=== PATIENT | female | born 1995 | race Caucasian/White ===

== ENCOUNTER 2024-06-06 15:07 | Outpatient (AMB) | payer BC, SELFPAY ==
[2024-06-06 15:18] VITALS: BP 112/71; PULSE 84; RESP 16; TEMP 36.7; O2SAT 98; BMI 31.0
--- NOTE | 2024-06-06 15:18 | OBCLNT_ITS ---
Vital Signs 06/06/24 15:18 Height 1.68 m Height Method Stated Weight 87.317 kg Weight Measurement Method Standing Scale BMI 31.0 BP 112/71 Blood Pressure Source Automatic Cuff Blood Pressure Location Left Upper Arm Position Sitting Respiration 16 Pulse 84 Pulse Source Monitor Temp 98.1 F Temp Source Oral Pulse Oximetry (%) 98 Oxygen Delivery Method Room Air Allergies/Home Meds Allergies & Medications Allergies amoxicillin Allergy (Severe, Verified 06/06/24 15:20) Hives Medication Reconciliation vitamins no.121-iron 28 mg-folic acid 800 mcg tablet tab PO 06/06/24 [History Confirmed 06/06/24] Intake Visit Data Collection New Patient or Established: New Patient (never been to [facility]) Reason for Visit:: CARE TRANSFER Seen by Clinical Staff ONLY (RN/MA): No Entry Driver Operator Required: No Do You Feel Safe at Home: Yes Authorities Contacted: N/A PCP or OBGYN visit in last 3 months: Yes Hx Now: Yes Are you currently on any form of Control: No Last menstrual period: 12/13/23 Pain Present Currently: No Pain Scale Used: Angelo-Taylor/Numerical Pain scale:: 0 Smoking Status Smoking Status: Never smoker Questionnaires Covid-19 Vaccine Questionnaire Has patient been vacinated for Covid-19 Have you been vacinated for Covid-19: Yes PHQ-9 PHQ-2 Over the last 2 weeks, how often have you been bothered by any of the following problems? 1. Little interest or pleasure in doing things: not at all 2. Feeling down, depressed, or hopeless: not at all Total score: 0 PHQ-9 3. Trouble falling or staying asleep, or sleeping too much: Not at all 4. Feeling tired or having little energy: Not at all 5. Poor appetite or overeating: Not at all 6. Feeling bad about yourself - or that you are a failure or have let yourself or your family down: Not at all 7. Trouble concentrating on things, such as reading the newspaper or watching television: Not at all 8. Moving or speaking so slowly that other people could have noticed? - Or the opposite - being so fidgety or restless that you have been moving around a lot more than usual: not at all 9. Thoughts that you would be better off or of hurting yourself in some way: Not at all Total score: 0 Source: Developed by Drs. Yovany Ruiz, Jenna Campbell, Andrea Galeas and colleagues, with an educational evelin from [employer]. Depression screen completed yes Social History Living Situation History Marital Status: Lives With: Spouse Housing: House Housing Other:: [place] [facility] [place], works in [employer] sales. Spouse is a yo Tobacco History Smoking Status: Never smoker Second Hand Smoke Exposure: No Alcohol History Alcohol Intake: Never Substance Use History Substance Use: NONE Domestic Abuse History Do You Feel Safe at Home: Yes Past Medical History Past Medical History Have you ever been diagnosed with any of the following: Neurological Problems Seizures: No Migraine: No Cardiology Problems Cardiac Arrhythmia: No Heart Murmur: No Hypercholesterolemia: No Deep Vein Thrombosis: No Hypertension: No Respiratory Problems Asthma: No Pulmonary Embolism: No Sleep Apnea: No Stomache/Intestinal Problems Celiac Disease: No Gall Bladder Disease: Yes (Pain around GB, no gallstones dx yet) Irritable Bowel: Yes (No meds, managed by diet) Genital/Urinary Problems Renal Disease: No Kidney Stones: No Reproductive Problems Breast Cancer: No Endometriosis: No Fibroids: No Genital Herpes: No Gonorrhea: No Pelvic Inflammatory Disease: No Polycystic Ovarian Syndrome: No Previous Pregnancies: No Syphilis: No Musculoskeletal Problems Arthritis: No Rheumatoid Arthritis: No Fibromyalgia: No Head,Eye,Nose,Throat Problems Glaucoma: No Endocrine Problems Diabetes Mellitus Type 2: No Hyperthyroidism: No Hypothyroidism: No Pituitary Disease: No Systemic Lupus Erythematosus: No Blood Problems Anemia: No Psychologic Problems Depression: No Anxiety: No Other Problems Hospitalization: No Autoimmune Disease: No Cosmetic Surgery: No Surgical History Appendectomy: No Bariatric Surgery: No Breast Surgery: No Cholecystectomy: No History of Present Illness HPI Narrative Pt is a 28 y/o transferring care from [facility] [place]. Moving here due to 's job. 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 Besides irritable bowel, severe NV in the first 13 weeks, some lumps in both axillary regions and occasional RUQ pain, pt has had an uncomplicated . OB Initial Visit Menstrual History Menstrual reliability: definite Flow: normal Menstrual regularity: regular Monthly: Yes Age at menarche: 13 On control pills at conception: No Date of positive home test: 12/31/23 Associated symptoms (LMP): Reports fatigue OB History : 1 Para: 0 Hx # Pregnancies: 0 Hx Total # of Abortions (Spontaneous & Elective): 0 # of Living Children: 0 Infection History & Risk Evaluation History of STDs: chlamydia Varicella/chicken pox status: immunized Genetic Screening & History Genetic Screening/Teratology Counseling - Includes patient, baby's father, or anyone in either family with: 1. Patient's age 35 years or older as of estimated date of delivery: No 2. Thalassemia (Paraguayan, Sao Tomean, Mediterranean, or Background); MCV less than 80: No 3. Neural Tube Defect (Meningomyelocele, Spina Bifida, or Anencephaly): No 4. Congenital Heart Defect: No 5. Down Syndrome: No 6. Patrice-Sachs (Ashkenazi Tenriism, Cajun, Micronesian Bahraini): No 7. Jeana Disease (Ashkenazi Tenriism): No 8. Familial Dysautonomia (Ashkenazi Tenriism): No 9. Sickle Cell Disease or Trait (): No 10. Hemophilia or other blood disorders: No 11. Muscular Dystrophy: No 12. Cystic Fibrosis: No 13. Janie's Chorea: No 14. Mental Retardation/Autism: No 15. Other inherited genetic or chromosomal disorder: No 16. Maternal Metabolic Disorder (EG,TYPE 1 Diabetes, PKU): No 17. Patient or baby's father had a child with defects not listed above: No 18. Recurrent loss or a stillbirth: No 19. Medications (including supplements, vitamins, herbs or otc pradeep gs)/illicit/recreational drugs/alcohol since last menstrual period: No 20. Any other: No Infection History 1. Live with someone with TB or exposed to TB: No 2. Rash or viral illness since last menstrual period: No 3. Hepatitis B,C: No Other (see comments) Source: [employer] OB Flowsheet OB Flowsheet Initial Weight: Not Recorded Date -?-?-?-?-?-?-?-?-?-?-?-?- EGA Weight Edema CTX Effacement BP Fundal ht Pres Dilation Effacement Station Visit Note Alb Glu FHR Mov 06/06/24 -?-?-?-?-?-?-?-?-?-?-?-?- 25w 1d 87.317 kg 112/71 24 140 active Review of Systems Review of Systems Narrative Review of Systems: Some occasional RUQ pain, has not had GB US yet, no N/v, resolved at 13 weeks. Good FM, no VB or LOF Constitutional Constitutional: Reports fatigue Endocrine Endocrine: Reports fatigue Exam General Limitations: no limitations General Appearance: alert, in no apparent distress, comfortable and cooperative Assessment & Plan Diagnosis / Problem List (1) : Status: Acute Qualifiers: Weeks of gestation: 25 weeks Qualified Code(s): Z3A.25 - 25 weeks gestation of Plan: Order GB us and axillary US. Pt will have GCT. F/u in 4 weeks Office Procedures OB Clinic LOC & Office Proc's Nursing/Assessment Patient Status: Initial/New Patient OB Clinic Nursing Assessment: Medication Reconciliation, Update PMH in EMR and Vital Signs OB Clinic Coordination of Care: Complex Care and Chronic Disease 1-5, Consent,records obtained, informed consent, Education Simp Pt/Fam, Lab and Imaging orders, Results/Orders obtained and Staff clarify orders Special Needs: Heart tones New Patient Charge New Patient Point Assignment: [id number] New Patient Point Charge: TOOL AND DIE MAKER LEVEL FIVE Level 4 ([id number])
== END 2024-06-06 16:17 | disposition home or self-care (01) ==
PROVIDERS: Supervising Provider Obstetrics & Gynecology; Visit Provider Obstetrics & Gynecology
DX: Z34.02 Encounter for supervision of normal first pregnancy, second trimester (principal); Z3A.25 25 weeks gestation of pregnancy
CPT/HCPCS: 99204; G0463

== ENCOUNTER → 2024-06-20 | Outpatient (CLI) | payer BC, SELFPAY ==
[2024-06-20 17:56] LABS: Glucose,1 Hour PP 50gm Dose 116 mg/dL (80-140)
== END | disposition home or self-care (01) ==
PROVIDERS: Referring Provider Obstetrics & Gynecology; Visit Provider Obstetrics & Gynecology
DX: Z34.90 Encounter for supervision of normal pregnancy, unspecified, unspecified trimester (principal)
CPT/HCPCS: 36415; 82950

== ENCOUNTER → 2024-06-30 | Outpatient (CLI) | payer BC, SELFPAY ==
[2024-06-30 13:30] LABS: Basophils % (Auto) 0 % (0-2.5); Eosinophils % (Auto) 0 % (0-10); Hematocrit 36.3 % (36.0-46.0); Hemoglobin 12.4 g/dL (12.0-16.0); Immature Granulocytes % (Auto) 2 % (0-0); Immature Granulocytes Auto 0.24 Thou/mm3 (0.00-0.00); Lymphocytes # (Auto) 2.7 Thou/mm3 (1.0-4.8); Lymphocytes % (Auto) 19 % (10-50); Mean Corpuscular HGB Conc 34.2 g/dl (31.0-37.0); Mean Corpuscular Hemoglobin 34.3 pg (25.0-35.0); Mean Corpuscular Volume 100 fL (80-100); Monocytes % (Auto) 7 % (0-12); Neutrophils # (Auto) 10.3 Thou/mm3 (1.8-7.7); Neutrophils % (Auto) 72 % (37-80); Nucleated Red Blood Cell % 0 /100 WBC (0); Platelet Count 295 Thou/mm3 (140-440); RDW Standard Deviation 46.4 fL (36.4-46.3); Red Blood Count 3.62 Miln/mm3 (4.00-5.20); White Blood Count 14.2 Thou/mm3 (3.6-11.0)
== END | disposition home or self-care (01) ==
PROVIDERS: PCP Obstetrics & Gynecology; Referring Provider Obstetrics & Gynecology; Visit Provider Obstetrics & Gynecology
DX: R04.0 Epistaxis (principal)
CPT/HCPCS: 36415; 85025

== ENCOUNTER 2024-07-18 14:00 | Outpatient (AMB) | payer BC, SELFPAY ==
[2024-07-18 14:10] VITALS: BP 114/75; PULSE 77; RESP 14; TEMP 36.3; O2SAT 98; BMI 32.5
--- NOTE | 2024-07-18 14:10 | OBCLNT_ITS ---
Vital Signs 07/18/24 14:10 Height 1.68 m Height Method Stated Weight 91.852 kg Weight Measurement Method Standing Scale BMI 32.5 BP 114/75 Blood Pressure Source Automatic Cuff Blood Pressure Location Left Upper Arm Position Sitting Respiration 14 Pulse 77 Pulse Source Monitor Temp 97.4 F Temp Source Oral Pulse Oximetry (%) 98 Oxygen Delivery Method Room Air Allergies/Home Meds Allergies & Medications Allergies amoxicillin Allergy (Severe, Verified 07/18/24 14:13) Hives Medication Reconciliation vitamins no.121-iron 28 mg-folic acid 800 mcg tablet tab PO 06/06/24 [History Confirmed 07/18/24] Intake Visit Data Collection New Patient or Established: Established Patient (seen at [facility] within 3 years) Reason for Visit:: CARE Seen by Clinical Staff ONLY (RN/MA): No Rvda Master Certified Rv Technician Required: No Do You Feel Safe at Home: Yes Authorities Contacted: N/A PCP or OBGYN visit in last 3 months: Yes Hx Now: Yes Are you currently on any form of Control: No Pain Present Currently: No Pain Scale Used: Angelo-Taylor/Numerical Pain scale:: 0 Smoking Status Smoking Status: Never smoker Questionnaires Covid-19 Vaccine Questionnaire Has patient been vacinated for Covid-19 Have you been vacinated for Covid-19: No PHQ-9 PHQ-2 Over the last 2 weeks, how often have you been bothered by any of the following problems? 1. Little interest or pleasure in doing things: not at all 2. Feeling down, depressed, or hopeless: not at all Total score: 0 PHQ-9 3. Trouble falling or staying asleep, or sleeping too much: Not at all 4. Feeling tired or having little energy: Not at all 5. Poor appetite or overeating: Not at all 6. Feeling bad about yourself - or that you are a failure or have let yourself or your family down: Not at all 7. Trouble concentrating on things, such as reading the newspaper or watching television: Not at all 8. Moving or speaking so slowly that other people could have noticed? - Or the opposite - being so fidgety or restless that you have been moving around a lot more than usual: not at all 9. Thoughts that you would be better off or of hurting yourself in some way: Not at all Total score: 0 Source: Developed by Drs. Yovany Ruiz, Jenna Campbell, Andrea Galeas and colleagues, with an educational evelin from [employer]. Depression screen completed yes Social History Living Situation History Lives With: Spouse Housing: House Housing Other:: Moved from [facility] [place], works in [employer]. Spouse is a yo Tobacco History Smoking Status: Never smoker Second Hand Smoke Exposure: No Alcohol History Alcohol Intake: Never Substance Use History Substance Use: NONE Domestic Abuse History Do You Feel Safe at Home: Yes Past Medical History Past Medical History Have you ever been diagnosed with any of the following: Neurological Problems Cerebrovascular Accident (CVA): No Transient Ischemic Attacks (TIA): No Dementia: No Alzheimer's Disease: No Parkinson's Disease: No Seizures: No Migraine: No Head Trauma: No Spinal Cord Injury: No Traumatic Brain Injury: No Cardiology Problems Myocardial Infarction: No Cardiac Arrhythmia: No Atrial Fibrillation: No Angina: No Heart Murmur: No Hypercholesterolemia: No Deep Vein Thrombosis: No Hypertension: No Respiratory Problems Chronic Obstructive Pulmonary Disease (COPD): No Asthma: No Bronchitis: No Pulmonary Embolism: No Sleep Apnea: No Wheezing: No Chest Deformities: No Smoking: No Smoking Cessation Counseling: No Smoking Exposure: No Tobacco Use: No Clubbing: No Exposure to Respiratory Irritants: No Intubation: No Stomache/Intestinal Problems Liver Cancer: No Hepatitis: No Cirrhosis: No Pancreatic Cancer: No Pancreatitis: No Celiac Disease: No Gall Bladder Disease: Yes (Pain around GB, no gallstones dx yet) Irritable Bowel: Yes (No meds, managed by diet) Genital/Urinary Problems Renal Disease: No Kidney Stones: No Polycystic Kidney Disease: No Neurogenic Bladder: No Inguinal Hernia: No Dialysis: No Reproductive Problems Breast Cancer: No Endometriosis: No Fibroids: No Genital Herpes: No Gonorrhea: No Pelvic Inflammatory Disease: No Polycystic Ovarian Syndrome: No Previous Pregnancies: No Syphilis: No Musculoskeletal Problems Muscular Dystrophy: No Myasthenia Gravis: No Marfan's Syndrome: No Arthritis: No Rheumatoid Arthritis: No Fibromyalgia: No Head,Eye,Nose,Throat Problems Cataracts: No Glaucoma: No Blind: No Retinal Detachment: No Macular Degeneration: No Chronic Ear Infections: No Deafness: No Eye Prosthesis: No Endocrine Problems Diabetes Mellitus Type 1: No Diabetes Mellitus Type 2: No Hypoglycemia: No Clarkia's Syndrome: No [place]'s Disease: No Hyperthyroidism: No Hypothyroidism: No Thyroid Cancer: No Parathyroid Disease: No Pituitary Disease: No Systemic Lupus Erythematosus: No Syndrome of Inappropriate Antidiuretic Hormone: No Adrenal Disease: No Graves' Disease: No Blood Problems Anemia: No Leukemia: No Hemophilia: No Thalassemia: No Sickle Cell Disease: No Clotting Problems: No Psychologic Problems Schizophrenia: No Recreational Drug Use: No Bipolar Disorder: No Depression: No Anxiety: No Behavior Problems: No Self-Mutilation: No Other Problems Hospitalization: No Down Syndrome: No Autism: No Developmental Delay: No Cosmetic Surgery: No Hepatitis A: No Hepatitis B: No Hepatitis C: No Communicable Disease: No Cancer: No Cervical Cancer: No Lung Cancer: No Ovarian Cancer: No Surgical History Angioplasty: No Appendectomy: No Bariatric Surgery: No Breast Surgery: No Cholecystectomy: No Visit OB Visit Log OB Flowsheet Initial Weight: Not Recorded Date -?-?-?-?-?-?-?-?-?-?-?-?- EGA Weight Edema CTX Effacement BP Fundal ht Pres Dilation Effacement Station Visit Note Alb Glu FHR Mov 06/06/24 -?-?-?-?-?-?-?-?-?-?-?-?- 25w 1d 87.317 kg 112/71 24 140 active 07/18/24 -?-?-?-?-?-?-?-?-?-?-?-?- 31w 1d 91.852 kg 114/[address] 116. Hgb 12. Constipated and Bright red blood from rectum. Hx hemerrhoids, Stool softeners. Had EGD/Colon screen in past for IBS. 140 active BOBBY Calculator Estimated Delivery Date Method Current WG Current Estimate 09/18/24 Ultrasound #1 31w 1d Other Estimates 09/18/24 LMP (Certain) 31w 1d Expected Delivery Route/Plan Anticipate . Pt mother had a CS Specific Issue/Plans Transfer of care from [facility] Notes Visit Date: 06/06/24 Last Updated by: Alesia Nathan (OB Clinic)MD Pt transferred care from [facility]. All PNC reviewed. Normal labs and second trimester US reviewed. NIPT tests reported by pt as WNL but no report seen. Knows it is a boy. Has GCT scheduled and will schedule a GB US for RUQ pain and an axillary US for lumps. Reassured pt and spouse this is likely just redundant breast tissue in axillary tail but since other MD was concerned, will order US. Office Procedures OB Clinic LOC & Office Proc's Nursing/Assessment Patient Status: Established Patient OB Clinic Nursing Assessment: Medication Reconciliation, Update PMH in EMR and Vital Signs OB Clinic Coordination of Care: Complex Care and Chronic Disease 1-5, Consent,records obtained, informed consent, Education Simp Pt/Fam and Staff clarify orders Special Needs: Heart tones Established Patient Charge Established Patient Point Assignment: 115 Established Patient Point Charge: EP Level 3 (80-115)
== END 2024-07-18 14:59 | disposition home or self-care (01) ==
LOC: HODSOBC 14:00
PROVIDERS: Supervising Provider Obstetrics & Gynecology; Visit Provider Obstetrics & Gynecology
DX: O09.893 Supervision of other high risk pregnancies, third trimester (principal); O99.613 Diseases of the digestive system complicating pregnancy, third trimester; K59.00 Constipation, unspecified; K62.5 Hemorrhage of anus and rectum; Z3A.31 31 weeks gestation of pregnancy; Z87.19 Personal history of other diseases of the digestive system; Z88.1 Allergy status to other antibiotic agents
CPT/HCPCS: 99213; G0463

== ENCOUNTER 2024-08-08 15:11 | Outpatient (AMB) | payer BC, SELFPAY ==
[2024-08-08 15:22] VITALS: BP 101/71; PULSE 87; RESP 16; TEMP 36.6; O2SAT 97; BMI 33.7
--- NOTE | 2024-08-08 15:22 | AMB.OBVISIT ---
Vital Signs 08/08/24 15:22 Height 1.68 m Height Method Stated Weight 95.254 kg Weight Measurement Method Standing Scale BMI 33.7 BP 101/71 Blood Pressure Source Automatic Cuff Blood Pressure Location Right Upper Arm Position Sitting Respiration 16 Pulse 87 Pulse Source Monitor Temp 97.9 F Temp Source Temporal Artery Scan Pulse Oximetry (%) 97 Oxygen Delivery Method Room Air Allergies/Home Meds Allergies & Medications Allergies amoxicillin Allergy (Severe, Verified 08/08/24 15:23) Hives Medication Reconciliation vitamins no.121-iron 28 mg-folic acid 800 mcg tablet tab PO 06/06/24 [History Confirmed 08/08/24] Intake Visit Data Collection New Patient or Established: Established Patient (seen at [facility] within 3 years) Reason for Visit:: obc Seen by Clinical Staff ONLY (RN/MA): No Vacuum Truck Driver Required: No Do You Feel Safe at Home: Yes Authorities Contacted: N/A PCP or OBGYN visit in last 3 months: Yes Hx Now: Yes Are you currently on any form of Control: No Pain Present Currently: No Pain Scale Used: Angelo-Taylor/Numerical Pain scale:: 0 Smoking Status Smoking Status: Never smoker Questionnaires Covid-19 Vaccine Questionnaire Has patient been vacinated for Covid-19 Have you been vacinated for Covid-19: No PHQ-9 PHQ-2 Over the last 2 weeks, how often have you been bothered by any of the following problems? 1. Little interest or pleasure in doing things: not at all PHQ-9 8. Moving or speaking so slowly that other people could have noticed? - Or the opposite - being so fidgety or restless that you have been moving around a lot more than usual: not at all Source: Developed by Drs. Yovany Ruiz, Jenna Campbell, Andrea Galeas and colleagues, with an educational evelin from [facility]. 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 Spouse is a yo Tobacco History Smoking Status: Never smoker Second Hand Smoke Exposure: No Alcohol History Alcohol Intake: Never Substance Use History Substance Use: NONE Domestic Abuse History Do You Feel Safe at Home: Yes BOILER/CHILLER OPERATOR: Past Medical History Past Medical History: No Hx Hypothyroidism, No Hx Hyperthyroidism, No Hx Breast Cancer, No Hx Hypertension, No Hx Cancer, No Hx Anemia, No Hx Renal Disease, No Hx Deep Vein Thrombosis, No Hx Diabetes Mellitus Type 1, No Hx Diabetes Mellitus Type 2 and No Hx Polycystic Ovarian Syndrome History of Present Illness HPI Narrative 29 y/o who presents for a return OB visit. Care OB Visit Log OB Flowsheet Initial Weight: Not Recorded Date <del>?</del> EGA Weight Edema CTX Effacement BP Fundal ht Pres Dilation Effacement Station Visit Note Alb Glu FHR Mov 06/06/24 <del>?</del> 25w 1d 87.317 kg 112/71 24 140 active 07/18/24 <del>?</del> 31w 1d 91.852 kg 114/75 32 GCT 116. Hgb 12. Constipated and Bright red blood from rectum. Hx hemerrhoids, Stool softeners. Had EGD/Colon screen in past for IBS. 140 active 08/08/24 <del>?</del> 34w 1d 95.254 kg 101/71 36 order US 2 weeks check position S>D 157 active BOBBY Calculator Estimated Delivery Date Method Current WG Current Estimate 09/18/24 Ultrasound #1 34w 5d Other Estimates 09/18/24 LMP (Certain) 34w 5d Expected Delivery Route/Plan Anticipate . Pt mother had a CS Specific Issue/Plans Transfer of care from [facility] [place] Labs and records scanned in (23 pages) Notes Visit Date: 08/08/24 Last Updated by: Alesia Nathan (OB Clinic)MD [facility] S>D Visit Date: 06/06/24 Last Updated by: Alesia Nathan (OB Clinic)MD Pt transferred care from [facility]. All PNC reviewed. Normal labs and second trimester US reviewed. NIPT tests reported by pt as WNL but no report seen. Knows it is a boy. Has GCT scheduled and will schedule a GB US for RUQ pain and an axillary US for lumps. Reassured pt and spouse this is likely just redundant breast tissue in axillary tail but since other MD was concerned, will order US. Office Procedures OB Clinic LOC & Office Proc's Nursing/Assessment Patient Status: Established Patient OB Clinic Nursing Assessment: Medication Reconciliation, Update PMH in EMR and Vital Signs OB Clinic Coordination of Care: Complex Care and Chronic Disease 1-5, Consent,records obtained, informed consent, Education Simp Pt/Fam and Staff clarify orders Established Patient Charge Established Patient Point Assignment: 85 Established Patient Point Charge: EP Level 3 (80-115)
== END 2024-08-08 16:05 | disposition home or self-care (01) ==
LOC: HODSOBC 15:11
PROVIDERS: PCP Obstetrics & Gynecology; Referring Provider Obstetrics & Gynecology; Supervising Provider Obstetrics & Gynecology; Visit Provider Obstetrics & Gynecology
DX: Z34.83 Encounter for supervision of other normal pregnancy, third trimester (principal); Z3A.34 34 weeks gestation of pregnancy
CPT/HCPCS: 81001; 99213; G0463

== ENCOUNTER → 2024-08-13 | Outpatient (CLI) | payer BC, SELFPAY ==
--- NOTE | 2024-08-13 11:30 | XR_ITS ---
Examination: Breast ultrasound complete, bilateral Date and time of exam: August 13, 2024 1140 hours INDICATIONS: Palpable lumps in the axillary region noticed beginning one year ago Technique: Real-time grayscale ultrasonographic imaging bilateral breasts, including all 4 quadrants as well as nipple retroareolar and axillary regions. Findings: Sonographic images right breast No cystic or solid mass 14 mm lymph node Sonographic images left breast 5 mm retroareolar cyst No solid nodules 14 mm x 15 mm lymph node IMPRESSION: BI-RADS Category 2: Benign findings
== END | disposition home or self-care (01) ==
PROVIDERS: PCP Obstetrics & Gynecology; Referring Provider Obstetrics & Gynecology; Visit Provider Obstetrics & Gynecology
DX: R22.33 Localized swelling, mass and lump, upper limb, bilateral (principal); N63.0 Unspecified lump in unspecified breast
CPT/HCPCS: 76641

== ENCOUNTER 2024-08-26 09:58 | Outpatient (AMB) | payer BC, SELFPAY ==
[2024-08-26 10:18] VITALS: BP 111/74; PULSE 90; RESP 17; TEMP 36.6; O2SAT 95; BMI 35.5
--- NOTE | 2024-08-26 10:18 | OBCLNT_ITS ---
Vital Signs 08/26/24 10:18 Height 1.68 m Height Method Stated Weight 99.96 kg Weight Measurement Method Standing Scale BMI 35.5 BP 111/74 Blood Pressure Source Automatic Cuff Blood Pressure Location Right Upper Arm Position Sitting Respiration 17 Pulse 90 Pulse Source Monitor Temp 97.9 F Temp Source Temporal Artery Scan Pulse Oximetry (%) 95 Oxygen Delivery Method Room Air Allergies/Home Meds Allergies & Medications Allergies amoxicillin Allergy (Severe, Verified 08/26/24 10:19) Hives Medication Reconciliation vitamins no.121-iron 28 mg-folic acid 800 mcg tablet tab PO 06/06/24 [History Confirmed 08/26/24] Intake Visit Data Collection New Patient or Established: Established Patient (seen at [facility] within 3 years) Reason for Visit:: OBC Seen by Clinical Staff ONLY (RN/MA): No Pack Worker Required: No Do You Feel Safe at Home: Yes Authorities Contacted: N/A PCP or OBGYN visit in last 3 months: Yes Date of Last PCP or OBGYN visit: 08/08/24 Hx Now: Yes Are you currently on any form of Control: No Pain Present Currently: No Pain Scale Used: Angelo-Taylor/Numerical Pain scale:: 0 Smoking Status Smoking Status: Never smoker Questionnaires Covid-19 Vaccine Questionnaire Has patient been vacinated for Covid-19 Have you been vacinated for Covid-19: No PHQ-9 PHQ-2 Over the last 2 weeks, how often have you been bothered by any of the following problems? 1. Little interest or pleasure in doing things: not at all 2. Feeling down, depressed, or hopeless: not at all Total score: 0 PHQ-9 3. Trouble falling or staying asleep, or sleeping too much: Not at all 4. Feeling tired or having little energy: Not at all 5. Poor appetite or overeating: Not at all 6. Feeling bad about yourself - or that you are a failure or have let yourself or your family down: Not at all 7. Trouble concentrating on things, such as reading the newspaper or watching television: Not at all 8. Moving or speaking so slowly that other people could have noticed? - Or the opposite - being so fidgety or restless that you have been moving around a lot more than usual: not at all 9. Thoughts that you would be better off or of hurting yourself in some way: Not at all Total score: 0 If you checked off any problems, how difficult have these problems made it for you to do your work, take care of things at home, or get along with other people?: not difficult at all Source: Developed by Drs. Yovany Ruiz, Jenna Campbell, Andrea Galeas and colleagues, with an educational evelin from [employer]. Social History Living Situation History Marital Status: Lives With: Spouse Housing: House Housing Other:: Moved from [facility] [place], works in [employer]. 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 She started care at [place]. Care OB Visit Log OB Flowsheet Initial Weight: Not Recorded Date -?-?-?-?-?-?-?-?-?-?-?-?- EGA Weight BP Alb Glu CTX Pres Fundal ht FHR Mov Dilation Station Effacement Hx Notes Visit Note 06/06/24 -?-?-?-?-?-?-?-?-?-?-?-?- 25w 1d 87.317 kg 112/71 24 140 active 07/18/24 -?-?-?-?-?-?-?-?-?-?-?-?- 31w 1d 91.852 kg 114/75 32 140 active GCT 116. Hgb 12. Constipated and Bright red blood from rectum. Hx hemerrhoids, Stool softeners. Had EGD/Colon screen in past for IBS. 08/08/24 -?-?-?-?-?-?-?-?-?-?-?-?- 34w 1d 95.254 kg 101/71 36 157 active order US 2 weeks check position S>D 08/26/24 -?-?-?-?-?-?-?-?-?-?-?-?- 36w 5d 99.96 kg 111/74 occasional breech 37 14 3 active 1 -3 0 Bedside ultrasound evin breech Positive movement no contractions no loss of fluid. Knows baby is breech. Strep screen done today. BOBBY Calculator Estimated Delivery Date Method Current WG Current Estimate 09/18/24 Ultrasound #1 36w 5d Other Estimates 09/18/24 LMP (Certain) 36w 5d Expected Delivery Route/Plan Anticipate . Pt mother had a CS Specific Issue/Plans Transfer of care from [facility] Labs and records scanned in (23 pages) Notes Visit Date: 08/08/24 Last Updated by: Alesia Nathan (OB Clinic), US ordered [facility] S>D Visit Date: 06/06/24 Last Updated by: Alesia Nathan (OB Clinic), Pt transferred care from [facility] [place]. All PNC reviewed. Normal labs and second trimester US reviewed. NIPT tests reported by pt as WNL but no report seen. Knows it is a boy. Has GCT scheduled and will schedule a GB US for RUQ pain and an axillary US for lumps. Reassured pt and spouse this is likely just redundant breast tissue in axillary tail but since other MD was concerned, will order US. Office Procedures OB Clinic LOC & Office Proc's Nursing/Assessment Patient Status: Established Patient OB Clinic Nursing Assessment: Medication Reconciliation, Update PMH in EMR and Vital Signs OB Clinic Coordination of Care: Education Complex Pt/Fam, Consent,records obtained, informed consent, Results/Orders obtained and Staff clarify orders Special Needs: Heart tones Established Patient Charge Established Patient Point Assignment: 100 Established Patient Point Charge: EP Level 3 (80-115) Assessment & Plan Diagnosis / Problem List (1) : Status: Acute Qualifiers: Weeks of gestation: 36 weeks Qualified Code(s): Z3A.36 - 36 weeks gestation of Assessment and Plan: Group B strep culture done. Official ultrasound pending. Patient needs breast pump. (2) Breech presentation: Status: Acute Qualifiers: Fetus number: single or unspecified fetus Qualified Code(s): O32.1XX0 - Maternal care for breech presentation, not applicable or unspecified Assessment and Plan: Told of need for versus version if the baby does not flip. Patient declines version and would like a scheduled at 39 weeks if baby is still breech.
== END 2024-08-26 11:57 | disposition home or self-care (01) ==
LOC: HODSOBC 09:58
PROVIDERS: Supervising Provider Obstetrics & Gynecology; Visit Provider Obstetrics & Gynecology
DX: O09.893 Supervision of other high risk pregnancies, third trimester (principal); Z3A.36 36 weeks gestation of pregnancy; O32.1XX0 Maternal care for breech presentation, not applicable or unspecified; Z36.85 Encounter for antenatal screening for Streptococcus B; Z88.0 Allergy status to penicillin
CPT/HCPCS: 99213; G0463

== ENCOUNTER 2024-09-01 13:28 | Outpatient (AMB) | payer BC, SELFPAY ==
[2024-09-01 13:44] VITALS: BP 122/79; PULSE 97; RESP 18; TEMP 36.5; O2SAT 96; BMI 35.7
--- NOTE | 2024-09-01 13:44 | OBCLNT_ITS ---
Vital Signs 09/01/24 13:44 Height 1.68 m Height Method Stated Weight 100.924 kg Weight Measurement Method Standing Scale BMI 35.7 BP 122/79 Blood Pressure Source Automatic Cuff Blood Pressure Location Right Upper Arm Position Sitting Respiration 18 Pulse 97 Pulse Source Monitor Temp 97.7 F Temp Source Oral Pulse Oximetry (%) 96 Oxygen Delivery Method Room Air Allergies/Home Meds Allergies & Medications Allergies amoxicillin Allergy (Severe, Verified 09/01/24 13:45) Hives Medication Reconciliation vitamins no.121-iron 28 mg-folic acid 800 mcg tablet tab PO 06/06/24 [History Confirmed 09/01/24] Intake Visit Data Collection New Patient or Established: Established Patient (seen at [facility] within 3 years) Reason for Visit:: CARE Seen by Clinical Staff ONLY (RN/MA): No 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 1. Little interest or pleasure in doing things: not at all 2. Feeling down, depressed, or hopeless: not at all Total score: 0 PHQ-9 3. Trouble falling or staying asleep, or sleeping too much: Not at all 4. Feeling tired or having little energy: Not at all 5. Poor appetite or overeating: Not at all 6. Feeling bad about yourself - or that you are a failure or have let yourself or your family down: Not at all 7. Trouble concentrating on things, such as reading the newspaper or watching television: Not at all 8. Moving or speaking so slowly that other people could have noticed? - Or the opposite - being so fidgety or restless that you have been moving around a lot more than usual: not at all 9. Thoughts that you would be better off or of hurting yourself in some way: Not at all Total score: 0 Source: Developed by Drs. Yovany Ruiz, Jenna Campbell, Andrea Galeas and colleagues, with an educational evelin from [employer]. Depression screen completed yes Social History Living Situation History Lives With: Spouse Housing: House Housing Other:: [place] [facility] [place] works in [employer]. 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 Past Medical History: No Hx Hypothyroidism, No Hx Hyperthyroidism, No Hx Breast Cancer, No Hx Hypertension, No Hx Cancer, No Hx Anemia, No Hx Renal Disease, No Hx Deep Vein Thrombosis, No Hx Diabetes Mellitus Type 1, No Hx Diabetes Mellitus Type 2 and No Hx Polycystic Ovarian Syndrome Care OB Visit Log OB Flowsheet Initial Weight: Not Recorded Date -?-?-?-?-?-?-?-?-?-?-?-?- EGA Weight BP Alb Glu CTX Pres Fundal ht FHR Mov Dilation Station Effacement Hx Notes Visit Note 06/06/24 -?-?-?-?-?-?-?-?-?-?-?-?- 25w 1d 87.317 kg 112/71 24 140 active 07/18/24 -?-?-?-?-?-?-?-?-?-?-?-?- 31w 1d 91.852 kg 114/75 32 140 active GCT 116. Hgb 12. Constipated and Bright red blood from rectum. Hx hemerrhoids, Stool softeners. Had EGD/Colon screen in past for IBS. 08/08/24 -?-?-?-?-?-?-?-?-?-?-?-?- 34w 1d 95.254 kg 101/71 36 157 active order US 2 weeks check position S>D 08/26/24 -?-?-?-?-?-?-?-?-?-?-?-?- 36w 5d 99.96 kg 111/74 occasional breech 37 14 3 active 1 -3 0 Bedside ultrasound evin breech Positive movement no contractions no loss of fluid. Knows baby is breech. Strep screen done today. 09/01/24 -?-?-?-?-?-?-?-?-?-?-?-?- 37w 4d 100.924 kg 122/79 occasional breech 38 145 active [place] breech +FM No UCs or LOF. If CS desires at 39 weeks on 09/11/24 BOBBY Calculator Estimated Delivery Date Method Current WG Current Estimate 09/18/24 Ultrasound #1 37w 4d Other Estimates 09/18/24 LMP (Certain) 37w 4d Expected Delivery Route/Plan Anticipate . Pt mother had a CS Specific Issue/Plans [place] [facility] [place] Labs and records scanned in (23 pages) Notes Visit Date: 09/01/24 Last Updated by: Alesia Nathan (OB Clinic)MD Have PNR but do not see PNC records. Visit Date: 08/08/24 Last Updated by: Alesia Nathan (OB Clinic)MD [facility] Visit Date: 06/06/24 Last Updated by: Alesia Nathan (OB Clinic), Pt transferred care from [facility] [place]. All PNC reviewed. Normal labs and second trimester US reviewed. NIPT tests reported by pt as WNL but no report seen. Knows it is a boy. Has GCT scheduled and will schedule a GB US for RUQ pain and an axillary US for lumps. Reassured pt and spouse this is likely just redundant breast tissue in axillary tail but since other MD was concerned, will order US. Office Procedures OB Clinic LOC & Office Proc's Nursing/Assessment Patient Status: Established Patient OB Clinic Nursing Assessment: Medication Reconciliation, Update PMH in EMR and Vital Signs OB Clinic Coordination of Care: Complex Care and Chronic Disease 1-5, Consent,records obtained, informed consent, Education Simp Pt/Fam, Lab and Imaging orders, Results/Orders obtained and Staff clarify orders Special Needs: Heart tones Established Patient Charge Established Patient Point Assignment: 135 Established Patient Point Charge: EP Level 4 (120-155) Bedside Ultrasounds US Transabdominal <14 weeks at bedside: Yes Assessment & Plan Diagnosis / Problem List (1) Breech presentation: Status: Acute Qualifiers: Fetus number: single or unspecified fetus Qualified Code(s): O32.1XX0 - Maternal care for breech presentation, not applicable or unspecified (2) : Status: Acute Qualifiers: Weeks of gestation: 37 weeks Qualified Code(s): Z3A.37 - 37 weeks gestation of Assessment and Plan: Schedule at 39 weeks September 11, 2024.
== END 2024-09-01 14:40 | disposition home or self-care (01) ==
LOC: HODSOBC 13:28
PROVIDERS: Supervising Provider Obstetrics & Gynecology; Visit Provider Obstetrics & Gynecology
DX: O09.893 Supervision of other high risk pregnancies, third trimester (principal); O32.8XX0 Maternal care for other malpresentation of fetus, not applicable or unspecified; Z3A.37 37 weeks gestation of pregnancy
CPT/HCPCS: 76801; 99214; G0463

== ENCOUNTER 2024-09-10 08:43 | Outpatient (AMB) | payer BC, SELFPAY ==
[2024-09-10 08:47] VITALS: BP 114/79; PULSE 87; RESP 17; TEMP 36.7; O2SAT 97; BMI 36.0
--- NOTE | 2024-09-10 08:47 | OBCLNT_ITS ---
Vital Signs 09/10/24 08:47 Height 1.68 m Height Method Stated Weight 101.661 kg Weight Measurement Method Standing Scale BMI 36.0 BP 114/79 Blood Pressure Source Automatic Cuff Blood Pressure Location Right Upper Arm Position Sitting Respiration 17 Pulse 87 Pulse Source Monitor Temp 98.0 F Temp Source Temporal Artery Scan Pulse Oximetry (%) 97 Oxygen Delivery Method Room Air Allergies/Home Meds Allergies & Medications Allergies amoxicillin Allergy (Severe, Verified 09/10/24 08:48) Hives Medication Reconciliation vitamins no.121-iron 28 mg-folic acid 800 mcg tablet tab PO 06/06/24 [History Confirmed 09/10/24] Intake Visit Data Collection New Patient or Established: Established Patient (seen at [facility] within 3 years) Reason for Visit:: OBC Seen by Clinical Staff ONLY (RN/MA): No Control Systems Specialist Required: No Do You Feel Safe at Home: Yes Authorities Contacted: N/A PCP or OBGYN visit in last 3 months: Yes Date of Last PCP or OBGYN visit: 09/01/24 Hx Now: Yes Are you currently on any form of Control: No Pain Present Currently: No Pain Scale Used: Angelo-Taylor/Numerical Pain scale:: 0 Smoking Status Smoking Status: Never smoker Questionnaires Covid-19 Vaccine Questionnaire Has patient been vacinated for Covid-19 Have you been vacinated for Covid-19: No PHQ-9 PHQ-2 Over the last 2 weeks, how often have you been bothered by any of the following problems? 1. Little interest or pleasure in doing things: not at all 2. Feeling down, depressed, or hopeless: not at all Total score: 0 PHQ-9 3. Trouble falling or staying asleep, or sleeping too much: Not at all 4. Feeling tired or having little energy: Not at all 5. Poor appetite or overeating: Not at all 6. Feeling bad about yourself - or that you are a failure or have let yourself or your family down: Not at all 7. Trouble concentrating on things, such as reading the newspaper or watching television: Not at all 8. Moving or speaking so slowly that other people could have noticed? - Or the opposite - being so fidgety or restless that you have been moving around a lot more than usual: not at all 9. Thoughts that you would be better off or of hurting yourself in some way: Not at all Total score: 0 If you checked off any problems, how difficult have these problems made it for you to do your work, take care of things at home, or get along with other people?: not difficult at all Source: Developed by Drs. Yovany Ruiz, Jenna Campbell, Andrea Galeas and colleagues, with an educational evelin from [employer]. Depression screen completed yes Social History Living Situation History Lives With: Spouse Housing: House Housing Other:: Moved from [facility] [place], works in [email or web address]. 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 Past Medical History: No Hx Hypothyroidism, No Hx Hyperthyroidism, No Hx Breast Cancer, No Hx Hypertension, No Hx Cancer, No Hx Anemia, No Hx Renal Disease, No Hx Deep Vein Thrombosis, No Hx Diabetes Mellitus Type 1, No Hx Diabetes Mellitus Type 2 and No Hx Polycystic Ovarian Syndrome Care OB Visit Log OB Flowsheet Initial Weight: Not Recorded Date -?-?-?-?-?-?-?-?-?-?-?-?- EGA Weight BP Alb Glu CTX Pres Fundal ht FHR Mov Dilation Station Effacement Hx Notes Visit Note 06/06/24 -?-?-?-?-?-?-?-?-?-?-?-?- 25w 1d 87.317 kg 112/71 24 140 active 07/18/24 -?-?-?-?-?-?-?-?-?-?-?-?- 31w 1d 91.852 kg 114/75 32 140 active GCT 116. Hgb 12. Constipated and Bright red blood from rectum. Hx hemerrhoids, Stool softeners. Had EGD/Colon screen in past for IBS. 08/08/24 -?-?-?-?-?-?-?-?-?-?-?-?- 34w 1d 95.254 kg 101/71 36 157 active order US 2 weeks check position S>D 08/26/24 -?-?-?-?-?-?-?-?-?-?-?-?- 36w 5d 99.96 kg 111/74 occasional breech 37 14 3 active 1 -3 0 Bedside ultrasound evin breech Positive movement no contractions no loss of fluid. Knows baby is breech. Strep screen done today. 09/01/24 -?-?-?-?-?-?-?-?-?-?-?-?- 37w 4d 100.924 kg 122/79 occasional breech 38 145 active [place] breech +FM No UCs or LOF. If CS desires at 39 weeks on 09/11/24 BOBBY Calculator Estimated Delivery Date Method Current WG Current Estimate 09/18/24 Ultrasound #1 38w 6d Other Estimates 09/18/24 LMP (Certain) 38w 6d Expected Delivery Route/Plan Anticipate . Pt mother had a CS Specific Issue/Plans Transfer of care from [facility] [place] Labs and records scanned in (23 pages) Notes Visit Date: 09/01/24 Last Updated by: Alesia Nathan (OB Clinic)MD Have PNR but do not see PNC records. Visit Date: 08/08/24 Last Updated by: Alesia Nathan (OB Clinic)MD [facility] Visit Date: 06/06/24 Last Updated by: Alesia Nathan (OB Clinic)MD Pt transferred care from [facility]. All PNC reviewed. Normal labs and second trimester US reviewed. NIPT tests reported by pt as WNL but no report seen. Knows it is a boy. Has GCT scheduled and will schedule a GB US for RUQ pain and an axillary US for lumps. Reassured pt and spouse this is likely just redundant breast tissue in axillary tail but since other MD was concerned, will order US. Office Procedures OB Clinic LOC & Office Proc's Nursing/Assessment Patient Status: Established Patient OB Clinic Nursing Assessment: Medication Reconciliation, Update PMH in EMR and Vital Signs OB Clinic Coordination of Care: Complex Care and Chronic Disease 1-5, Consent,records obtained, informed consent, Education Simp Pt/Fam and Staff clarify orders Special Needs: Heart tones Established Patient Charge Established Patient Point Assignment: 115 Established Patient Point Charge: EP Level 3 (80-115)
== END 2024-09-10 09:11 | disposition home or self-care (01) ==
LOC: HODSOBC 08:43
PROVIDERS: Supervising Provider Obstetrics & Gynecology; Visit Provider Obstetrics & Gynecology
DX: O09.893 Supervision of other high risk pregnancies, third trimester (principal); O32.8XX0 Maternal care for other malpresentation of fetus, not applicable or unspecified; Z3A.39 39 weeks gestation of pregnancy; Z88.0 Allergy status to penicillin
CPT/HCPCS: 99213; G0463

== ENCOUNTER 2024-09-11 05:32 | Inpatient (IN) | payer BC, SELFPAY ==
[2024-09-11] VITALS (33 sets, daily range): BP systolic 102–140; BP diastolic 51–92; PULSE 61–113; RESP 14–29; TEMP 36.5–36.7; O2SAT 93–98; BMI 35.3; BMI 35.2
[2024-09-11 06:50] LABS: Basophils # (Auto) 0.1 Thou/mm3 (0.0-0.2); Basophils % (Auto) 0 % (0-2.5); Eosinophils # (Auto) 0.1 Thou/mm3 (0.0-0.5); Eosinophils % (Auto) 1 % (0-10); Hemoglobin 13.1 g/dL (12.0-16.0); Immature Granulocytes % (Auto) 1 % (0-0); Lymphocytes # (Auto) 3.3 Thou/mm3 (1.0-4.8); Lymphocytes % (Auto) 23 % (10-50); Mean Corpuscular HGB Conc 36.4 g/dl (31.0-37.0); Mean Corpuscular Hemoglobin 34.6 pg (25.0-35.0); Mean Corpuscular Volume 95 fL (80-100); Monocytes # (Auto) 1.1 Thou/mm3 (0.0-0.8); Monocytes % (Auto) 8 % (0-12); Neutrophils # (Auto) 9.4 Thou/mm3 (1.8-7.7); Neutrophils % (Auto) 67 % (37-80); Nucleated Red Blood Cell % 0 /100 WBC (0); Platelet Count 270 Thou/mm3 (140-440); RDW Standard Deviation 43.6 fL (36.4-46.3); Red Blood Count 3.79 Miln/mm3 (4.00-5.20); White Blood Count 14.1 Thou/mm3 (3.6-11.0)
[2024-09-11 07:25] LABS: Hepatitis B Surface Antigen Non Reactive (Non React); Rubella, IgG Antibody Reactive (Immune)
[2024-09-11 07:29] LABS: Syphilis Nonreactive (Nonreactive)
[2024-09-11] MEDS: FAMOTIDINE INJ 10 MG/ML VIAL 2 ML 20 MG IV (07:29)
[2024-09-11] MEDS: ceFAZolin/D5W 2 GM IV 2 GM/100 ML BAG IV (07:29)
[2024-09-11] MEDS: METOCLOPRAMIDE INJ 5 MG/ML VIAL 2 ML 10 MG IVP (07:29)
[2024-09-11] MEDS: RINGERS LACTATED 1000 ML 1,000 ML 100 ML IV (07:30)
--- NOTE | 2024-09-11 08:21 | PD.LDHP ---
Documentation for date of: 09/11/24 OB Labor/Induct. HPI History of Present Illness Chief complaint: Scheduled primary for persistent breech presentation : 1 Para: 0 pregnancies: 0 Living children: 0 History of Abortions: Spontaneous and Elective: 0 History of sections: No History of : No Date of last menstrual period: 12/13/23 BOBBY: 09/18/24 Gestational Age (weeks): 39 Gestational Age (days): 0 Gestational age based on last menstrual period: 39 History of present illness: The patient is a 29-year-old G1, P0 at 39 weeks with persistent breech presentation for primary elective section. She started her care in [place] and transferred here as [place] here [place] [facility] the street. She has been seeing me for her care. The day of admission she reported good movement no contractions no loss of fluids no vaginal bleeding. Baby was in a evin breech presentation the afternoon before in the office. History of Present Dating criteria: LMP confirmed by 1st trimester US Adequate Care: Yes Ultrasounds: normal mid trimester US Obstetrical complications: none Medical complications: none Labs Maternal Blood Type: O Pos Labs: Positive: Rubella Titre, Negative: RPR and Hepatitis B and Unknown: HIV, Chlamydia, Gonorrhea and Group Beta Strep Past Medical History Surgical History SURGICAL: Negative Section Past Medical History Comments PMH COMMENT: Has no significant past medical history. She had some breast lumps they were working up on ultrasound she had some gallbladder pain they worked up with an ultrasound. No surgical history. Meds Home Medications and Allergies Home Medications ?Medication ?Instructions ?Recorded ?Confirmed ?Type vitamins no.121-iron 28 1 tab PO QDAY 06/06/24 09/11/24 History mg-folic acid 800 mcg tablet Allergies Allergy/AdvReac Type Severity Reaction Status Date / Time amoxicillin Allergy Severe Hives Verified 09/11/24 06:48 OB Exam Physical Exam Vital signs: Pulse BP Pulse Ox 104 H 121/77 96 09/11/24 06:14 09/11/24 06:14 09/11/24 07:29 Constitutional Constitutional: no acute distress Routine Cardiovascular Exam Cardiovascular: Present RRR Routine Abdominal Exam Abdominal: Present soft and normoactive bowel sounds Detailed Labor and Delivery Exam monitor accelerations: 15x15 monitor decelerations: None terminal clerk variability: Moderate (11-25) Contraction frequency (min): Irregular Tachysystole: No Contraction intensity: Mild Routine Extremities Exam Extremities: Present full ROM Routine Skin Exam Skin: Present intact, dry and warm Routine Psychiatric Exam Psychiatric: Present normal affect and normal thought process OB Results Labs 09/11/24 06:21 Labs: Short CBC 09/11/24 Range/Units 06:21 WBC 14.1 H (3.6-11.0) Thou/mm3 Hgb 13.1 (12.0-16.0) g/dL Hct 36.0 (36.0-46.0) % Plt Count 270 (140-440) Thou/mm3 OB Assessment & Plan Assessment and Plan (1) Breech presentation: Status: Acute Assessment and plan: Patient is consented for primary low-transverse section. The risks of the procedure were discussed with patient the office and her present including the risk of bleeding, infection, blood transfusion, damage to bowel, bladder, bowel, blood vessels or other organs. Prolonged hospital stay should any complications occur. All questions were answered all consents were signed. (2) : Status: Acute (1) Breech presentation Qualifiers: Fetus number: single or unspecified fetus Qualified Code(s): O32.1XX0 - Maternal care for breech presentation, not applicable or unspecified (2) Qualifiers: Weeks of gestation: 37 weeks Qualified Code(s): Z3A.37 - 37 weeks gestation of
--- NOTE | 2024-09-11 08:27 | PD.GYNPROC ---
Operative Note - DREDGE OR BARGE SHORE HAND Procedure Date of procedure: 09/11/24 Procedure Performed: Primary low-transverse section Indication: The patient is a 29-year-old G1, P0 at 39 weeks with a persistent breech presentation for about 4 weeks. Patient was offered a version versus a primary and opted for a primary low-transverse section. Pre-Op diagnosis: 1. Intrauterine at 39 weeks 2. Persistent breech presentation, declines external cephalic version Post-Op diagnosis: Same Anesthesia type: Spinal Procedure description: After obtaining informed consent, the patient was brought back to the operating room and spinal anesthesia was administered. She was then prepped and draped in the dorsal supine position with a leftward tilt in a normal sterile fashion. A Xiao catheter was inserted the patient's bladder. The patient was given 2 g of Ancef by anesthesia. A Pfannenstiel skin incision was made with a scalpel and carried down to the underlying fascia. The fascia was incised in the midline, and the fascial incision extended laterally using Walker scissors. The superior aspect the fascia was grasped with Mary clamps, and the underlying rectus muscles dissected off using blunt and sharp dissection. This was repeated in the inferior aspect the incision. The rectus muscles were in the midline the peritoneum was picked up and entered bluntly with the surgeon's fingers. This was extended superiorly and inferiorly with good visualization of the bladder. The bladder blade was inserted and the uterus was incised in a low transverse fashion using a scalpel above the bladder reflection. The uterine incision was extended laterally using blunt dissection with the surgeon's fingers. The bag barton was ruptured and clear fluid was noted. The bladder blade was removed and the was delivered atraumatically in a evin breech presentation. The cord was clamped and cut, and the was handed off to the waiting pediatric staff. Cord blood was collected. Cord gases were saved. The placenta was then manually removed, and the uterus was exteriorized and cleared of all clots and debris. The uterine incision was repaired using 0 Monocryl in a running locked fashion. Excellent hemostasis was noted. The uterus was returned to the patient's abdominal cavity and copious irrigation carried out with warm normal saline. The uterine incision was reexamined and noted to be hemostatic. The rectus muscles were then reapproximated in the midline using a running suture of 0 Monocryl. The fascia was closed with 0 Vicryl in a running fashion. The subcutaneous tissues were irrigated found to be hemostatic . These were reapproximated using a running suture of 2-0 plain. The skin was closed with a subcuticular suture of 4-0 Monocryl. The patient tolerated the procedure well, sponge, lap, needle, and instrument counts were correct x 2 and the patient went to the recovery area awake and in stable condition. Of note, the baby was with mom and dad in stable condition in the recovery room. Fluids: crystalloid and other (Albumin 250 cc) Fluid amount (mL): 2,000 Urine output (mL): 200 Specimen: none Implants: none Estimated blood loss (ml): 400 Findings: Liveborn male in the evin breech presentation with no with a loose nuchal cord x 1 no meconium . Apgars were 7 and 9 Weight was 8 pounds 1 ounce the placenta was complete ,spontaneous ,grossly normal. Tubes ,uterus and ovaries appeared grossly normal. Complications: none Surgical staff Vince Flores CRNA Anethesia Gerardo GLASERA assistant professor of sociology Operation Date: 09/11/24 07:45 <No data on this case meets the specified criteria> Diagnosis Discharge Diagnosis (1) Breech presentation: Status: Acute (2) : Status: Acute Problem List Completed Was Problem List Reviewed/Reconciled?: Yes (1) Breech presentation Qualifiers: Fetus number: single or unspecified fetus Qualified Code(s): O32.1XX0 - Maternal care for breech presentation, not applicable or unspecified (2) Qualifiers: Weeks of gestation: 37 weeks Qualified Code(s): Z3A.37 - 37 weeks gestation of
[2024-09-11] MEDS: OXYTOCIN in NS 20 units 20 UNIT/1,000 ML BAG 125 UNIT IV ×2 (09:05→17:29)
[2024-09-11 09:55] LABS: HIV (1&2) Antibody Rapid Non-Reactive
[2024-09-11 10:49] LABS: Chlamydia trachomatis PCR Negative (Not Detect); Neisseria Gonorrhoeae DNA PCR Negative (Not Detect); Trichomonas Negative (Negative)
[2024-09-11 11:20] LABS: Amphetamine/Metham Scrn,Ur OB Negative (Negative); Benzoylecgonine Screen, Ur OB Negative (Negative); Opiate Screen,Urine OB Negative (Negative); THC Screen,Urine OB Negative (Negative)
[2024-09-11] MEDS: KETOROLAC INJ 30 MG/ML VIAL IVP ×3 (12:23→23:28)
[2024-09-12] VITALS (7 sets, daily range): BP systolic 95–117; BP diastolic 65–72; PULSE 94–104; RESP 18–19; TEMP 36.3–36.9; O2SAT 95–97
[2024-09-12] MEDS: RINGERS LACTATED 1000 ML 1,000 ML 100 ML IV (01:27)
[2024-09-12 05:43] LABS: Basophils # (Auto) 0.1 Thou/mm3 (0.0-0.2); Basophils % (Auto) 0 % (0-2.5); Eosinophils # (Auto) 0.1 Thou/mm3 (0.0-0.5); Eosinophils % (Auto) 0 % (0-10); Hematocrit 28.3 % (36.0-46.0); Hemoglobin 10.1 g/dL (12.0-16.0); Immature Granulocytes % (Auto) 1 % (0-0); Immature Granulocytes Auto 0.25 Thou/mm3 (0.00-0.00); Lymphocytes % (Auto) 11 % (10-50); Mean Corpuscular HGB Conc 35.7 g/dl (31.0-37.0); Mean Corpuscular Hemoglobin 35.1 pg (25.0-35.0); Mean Corpuscular Volume 98 fL (80-100); Monocytes # (Auto) 1.6 Thou/mm3 (0.0-0.8); Monocytes % (Auto) 9 % (0-12); Neutrophils # (Auto) 14.1 Thou/mm3 (1.8-7.7); Neutrophils % (Auto) 78 % (37-80); Nucleated Red Blood Cell % 0 /100 WBC (0); Platelet Count 200 Thou/mm3 (140-440); RDW Standard Deviation 44.9 fL (36.4-46.3); Red Blood Count 2.88 Miln/mm3 (4.00-5.20)
[2024-09-12] MEDS: KETOROLAC INJ 30 MG/ML VIAL IVP (06:44)
[2024-09-12] MEDS: SIMETHICONE 80 MG CHEW PO ×2 (06:45→12:33)
--- NOTE | 2024-09-12 06:45 | PD.LDDS ---
DS: Providers Provider Date of admission: 09/11/24 05:32 Primary care physician: Physician No Primary/Family Admitting Provider: Alesia Nathan MD ([facility]) Attending Provider on Admission: Ayo Forrest MD Consults: 09/11/24 08:20 Referral Routine Comment: Attending Provider on DC: Ayo Forrest MD Discharging Provider: Ayo Forrest MD DS: Diagnosis Problem List Completed Was Problem List Reviewed/Reconciled?: Yes Summary/Hosp Course Brief History: The patient is a 29-year-old G1, P0 at 39 weeks with persistent breech presentation for primary elective section. She started her care in [place] and transferred here as she moved here to [place] [facility] the [facility] across the street. She has been seeing me for her care. The day of admission she reported good movement no contractions no loss of fluids no vaginal bleeding. Baby was in a evin breech presentation the afternoon before in the office. Peripartum Data Delivery Method: Low Transverse Procedures: Procedures Operation Date: 09/11/24 07:45 Actual Procedure Side Surgeon p in OB Not Applicable Alesia Nathan ([facility])MD Time Spent with Patient Time attestation: Total time spent providing and/or coordinating discharge services: Exam Vital Signs Temp Pulse Resp BP Pulse Ox O2 Del Method 97.9 F 94 19 95/65 95 Room Air 09/12/24 03:45 09/12/24 03:45 09/12/24 03:45 09/12/24 03:45 09/12/24 03:45 09/12/24 03:45 Discharge Plan Plan Patient Disposition: HOME (Self Care) Patient condition on transfer: Stable Prescriptions/Referrals Prescriptions/Med Rec: New hydrocodone-acetaminophen 5-325 mg tablet 1 tab PO Q6H MDD 4 PRN (Reason: pain) Qty: 20 0RF ibuprofen 600 mg tablet 600 mg PO Q6H PRN (Reason: pain) Qty: 30 0RF docusate sodium 250 mg capsule 250 mg PO BID PRN (Reason: constipation) Qty: 60 1RF No Action PNV no.[id number] acid 28 mg iron- 800 mcg tablet 1 tab PO QDAY Referrals: No Primary/Family,Physician [Primary Care Provider] - Patient/Caregiver Discharge Instructions Discharge Activity: activity as tolerated Other Discharge Activity Instructions:: Follow up office 1 week. Education Materials: C Section Dc Print Language: Citizen Of [place] Stand Alone Forms: [employer] Award Info., Patient Portal Info Letter Discharge Order Discharge Orders: Discharge (Routine); Ordered 09/13/24 Ordered By: Ayo Forrest Planned Discharge Date 09/13/24
--- NOTE | 2024-09-12 07:32 | ESPR_ITS ---
RE: BRANNON AMGANA : 1995 DATE OF SERVICE: 09/12/2024 S: Postop day #1, the patient denies any prior complaints. She is voiding. She is ambulating. She tolerated regular diet. She is passing flatus. She denies any excessive vaginal bleeding. She denies any dizziness or lightheadedness. She denies any chest pain, palpitations, shortness of breath, or lower extremity pain. O: Vital Signs: Blood pressure is 95/65, heart rate 94, respirations 19, temperature is 97.9, and pulse ox is 95% on room air. Lungs: Clear to auscultation bilaterally. Heart: Regular rate and rhythm. Abdomen: Nondistended. Dressing is dry and intact. Fundus is firm. Extremities: Nontender. LABORATORY DATA: Hemoglobin pre-delivery is 13.1. Post-delivery is 10.1. A: Postop day #1, status post delivery. P: Encourage ambulation, remove dressing, discontinue IV, support, possible discharge home tomorrow. DT: 06:50:29 TT: 07:30:00 Ref: [id number] - TID: [id number]
[2024-09-12] MEDS: Furosemide 20 MG TABLET PO ×2 (08:55→18:06)
--- NOTE | 2024-09-12 11:34 | PC.CC ---
Patient is a 29-year-old, female, present to for delivery of baby boy. ASW, Kim, met with patient [id number] to do initial assessment due mother having a transfer of care at 25 weeks. ASW introduced herself, role in the agency, reason for visit, and discussed limits of confidentiality. At bedside was patient's , Kem Loving whom patient provided verbal consent to remain in the room during assessment. Patient appeared alert and oriented to self, time, place, and situation. Patient made good eye contact. Patient was cooperative. Patient?s behavior appeared ordinary. No signs of delusions or hallucinations. Patient reports she has been receiving care since she was 8 weeks in [place] until she was 25 weeks which is when she moved here. Patient continued care as soon as she moved here and reports to providing all proper documentation to provider so they can she there was no lapse in care. The father of the baby, Kem Loving is involved. Patient denied domestic violence and history with CWS as this is her first child. Patient reports that her support system includes her , her parents and in-laws. Patient has all the supplies she needs for her and plans exclusively breast feeding. ASW provided psychoeducation regarding baby blues and Post- Depression, as well as counseling groups at the [facility], and [facility]. SW provided community resources: Warm Line and Crisis Line.
[2024-09-12] MEDS: Milk Of Magnesia Susp 30 ML UDC PO (12:33)
[2024-09-12] MEDS: IBUPROFEN TAB 400 MG TABLET 800 MG PO (12:33)
[2024-09-12] MEDS: HYDROcodone/APAP 5/325 TABLET 1 TAB PO ×2 (15:57→19:43)
[2024-09-13] MEDS: HYDROcodone/APAP 5/325 TABLET 1 TAB PO ×3 (00:24→09:37)
[2024-09-13] MEDS: IBUPROFEN TAB 400 MG TABLET 800 MG PO (01:40)
[2024-09-13 04:50] VITALS: BP 109/72; PULSE 91; RESP 19; TEMP 36.8; O2SAT 96
[2024-09-13 06:08] VITALS: BP 120/84; PULSE 90
[2024-09-13] MEDS: Furosemide 20 MG TABLET PO (06:08)
--- NOTE | 2024-09-13 07:09 | ESPR_ITS ---
RE: BRANNON MAGANA : 1995 DATE OF SERVICE: 09/13/2024 SUBJECTIVE: Postoperative day #2, the patient denies any problem or complaints. OBJECTIVE: Vital Signs: Stable. She is afebrile. Abdomen: Incision clear and intact. Extremities: Nontender. No edema. ASSESSMENT: Postop day #2, status post delivery. PLAN: Discharge home. Discharge instructions given. Follow up in the office in 1 week. DT: 05:12:53 TT: 07:07:00 Ref: [id number] - TID: [id number]
[2024-09-13 07:21] LABS: Basophils % (Auto) 0 % (0-2.5); Eosinophils # (Auto) 0.1 Thou/mm3 (0.0-0.5); Eosinophils % (Auto) 1 % (0-10); Hematocrit 27.2 % (36.0-46.0); Hemoglobin 9.4 g/dL (12.0-16.0); Immature Granulocytes % (Auto) 2 % (0-0); Immature Granulocytes Auto 0.28 Thou/mm3 (0.00-0.00); Lymphocytes # (Auto) 3.4 Thou/mm3 (1.0-4.8); Lymphocytes % (Auto) 24 % (10-50); Mean Corpuscular HGB Conc 34.6 g/dl (31.0-37.0); Mean Corpuscular Hemoglobin 33.8 pg (25.0-35.0); Mean Corpuscular Volume 98 fL (80-100); Monocytes # (Auto) 1.3 Thou/mm3 (0.0-0.8); Monocytes % (Auto) 9 % (0-12); Neutrophils # (Auto) 8.8 Thou/mm3 (1.8-7.7); Neutrophils % (Auto) 63 % (37-80); Nucleated Red Blood Cell % 0 /100 WBC (0); Platelet Count 207 Thou/mm3 (140-440); RDW Standard Deviation 46.2 fL (36.4-46.3); Red Blood Count 2.78 Miln/mm3 (4.00-5.20)
[2024-09-13 08:00] VITALS: BP 119/77; PULSE 96; RESP 16; TEMP 36.7; O2SAT 96
== END 2024-09-13 12:25 | disposition home or self-care (01) | DRG 788 ==
LOC: S4SX 06:07 → S4NX 07:35
PROVIDERS: Admitting Provider Obstetrics & Gynecology; Visit Provider Specialist
PROC: (CPT 59514; principal; 2024-09-11 07:30)
DX: O32.1XX0 Maternal care for breech presentation, not applicable or unspecified (principal); Z37.0 Single live birth; Z3A.39 39 weeks gestation of pregnancy
CPT/HCPCS: 36415; 80307; 85025; 86703; 86762; 86780; 86850; 86900; 86901; 87340; 87491; 87591; 87661; A4314; A4649; J0689; J1885; J2274; J2405; J2590; J2765; J3010; J3490; J7120; P9045; A9270; J2270

== ENCOUNTER 2024-09-26 11:06 | Outpatient (AMB) | payer BC, SELFPAY ==
[2024-09-26 11:11] VITALS: BP 114/75; PULSE 89; RESP 17; TEMP 36.3; O2SAT 98; BMI 32.8
--- NOTE | 2024-09-26 11:11 | AMBOBPPN_ITS ---
Vital Signs 09/26/24 11:11 Height 1.68 m Height Method Stated Weight 92.76 kg Weight Measurement Method Standing Scale BMI 32.8 BP 114/75 Blood Pressure Source Automatic Cuff Blood Pressure Location Right Upper Arm Position Sitting Respiration 17 Pulse 89 Pulse Source Monitor Temp 97.4 F Temp Source Temporal Artery Scan Pulse Oximetry (%) 98 Oxygen Delivery Method Room Air Allergies/Home Meds Allergies & Medications Allergies amoxicillin Allergy (Severe, Verified 09/26/24 11:12) Hives pineapple Allergy (Verified 09/26/24 11:12) Intake Visit Data Collection New Patient or Established: Established Patient (seen at [facility] within 3 years) Reason for Visit:: CSECTION FOLLOW UP Seen by Clinical Staff ONLY (RN/MA): No Stapler Machine Required: No Do You Feel Safe at Home: Yes Authorities Contacted: N/A PCP or OBGYN visit in last 3 months: Yes Date of Last PCP or OBGYN visit: 09/13/24 Hx Now: No Are you currently on any form of Control: No Pain Present Currently: Yes Pain Location: Abdomen Pain Scale Used: Angelo-Taylor/Numerical Pain scale:: 1 Smoking Status Smoking Status: Never smoker [employer]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: Past Medical History Past Medical History: No Hx Neurological Disorders, No Hx Hypothyroidism, No Hx Hyperthyroidism, No Hx Breast Cancer, No Hx Cardiac Disorders, No Hx Hypertension, No Hx Cancer, No Hx Anemia, Yes Hx Gastrointestinal Disorders, No Hx Renal Disease, No Hx Deep Vein Thrombosis, No Hx Diabetes Mellitus Type 1, No Hx Diabetes Mellitus Type 2, No Psychiatric Problems and No Hx Polycystic Ovarian Syndrome Questionnaires Covid-19 Vaccine Questionnaire Has patient been vacinated for Covid-19 Have you been vacinated for Covid-19: No Social History Living Situation History Marital Status: Life Partner Lives With: Spouse Housing: House Housing Other:: Moved from [facility], works in [employer] sales. Spouse is a yo Tobacco History Smoking Status: Never smoker Second Hand Smoke Exposure: No Alcohol History Alcohol Intake: Current Substance Use History Substance Use: NONE Domestic Abuse History Do You Feel Safe at Home: Yes EPDS - PP Depression Screening [place] Pospartum Depression Screen I have been able to laugh and see the funny side of things: (0) As much as I always could I have looked forward with enjoyment to things: (0) As much as I ever did I have blamed myself unnecessarily when things went wrong: (0) No, never I have been anxious or worried for no good reason: (0) No, not at all I have felt scared or panicky for no very good reason: (0) No, not at all Things have been getting on top of me: (0) No, I have been coping as well as ever I have been so unhappy that I have had difficulty sleeping: (0) No, not at all I have felt sad or miserable: (0) No, not at all I have been so unhappy that I have been crying: (0) No, never The thought of harming myself has occurred to me: (0) Never Care OB Visit Log OB Flowsheet Initial Weight: Not Recorded Date -?-?-?-?-?-?-?-?-?-?-?-?- EGA Weight BP Alb Glu CTX Pres Fundal ht FHR Mov Dilation Station Effacement Hx Notes Visit Note 06/06/24 -?-?-?-?-?-?-?-?-?-?-?-?- 25w 1d 87.317 kg 112/71 24 140 active 07/18/24 -?-?-?-?--?-?-?-?-?-?-?-?- 31w 1d 91.852 kg 114/75 32 140 active GCT 116. Hgb 12. Constipated and Bright red blood from rectum. Hx hemerrhoids, Stool softeners. Had EGD/Colon screen in past for IBS. 08/08/24 -?-?-?-?-?-?-?-?-?-?-?-?- 34w 1d 95.254 kg 101/71 36 157 active order US 2 weeks check position S>D 08/26/24 -?-?-?-?-?-?-?-?-?-?-?-?- 36w 5d 99.96 kg 111/74 occasional breech 37 14 3 active 1 -3 0 Bedside ultrasound evin breech Positive movement no contractions no loss of fluid. Knows baby is breech. Strep screen done today. 09/01/24 -?-?-?-?-?-?-?-?-?-?-?-?- 37w 4d 100.924 kg 122/79 occasional breech 38 145 active [place] breech +FM No UCs or LOF. If CS desires at 39 weeks on 09/11/24 BOBBY Calculator Estimated Delivery Date Method Current WG Current Estimate 09/18/24 Ultrasound #1 41w 1d Other Estimates 09/18/24 LMP (Certain) 41w 1d Expected Delivery Route/Plan Anticipate . Pt mother had a CS Specific Issue/Plans Transfer of care from [facility] Labs and records scanned in (23 pages) Notes Visit Date: 09/01/24 Last Updated by: Alesia Nathan ([facility]), Have PNR but do not see PNC records. Visit Date: 08/08/24 Last Updated by: Alesia Nathan ([facility] Visit Date: 06/06/24 Last Updated by: Alesia Nathan ([facility]), Pt transferred care from [facility]. All PNC reviewed. Normal labs and second trimester US reviewed. NIPT tests reported by pt as WNL but no report seen. Knows it is a boy. Has GCT scheduled and will schedule a GB US for RUQ pain and an axillary US for lumps. Reassured pt and spouse this is likely just redundant breast tissue in axillary tail but since other MD was concerned, will order US. HPI Interval History: The patient is a 29-year-old -0-0-1 status post scheduled primary for persistent breech presentation 09/11/2024. Her son Florentin is doing very well. She is breast-feeding. She has a lot of family support. Her parents are visiting and her is helping. Patient denies pain. She denies heavy bleeding fevers or chills. Patient has lost already 25 pounds since delivery. Was or delivery considered high risk: No Delivery type: Was labor induced: no Gestational age at delivery (weeks): 39 Delivery date: 09/11/24 Delivering provider: Dr. Debbie Nathan Delivery complications: No Is patient infant: Yes Is patient sexually active: No Exam Narrative Physical exam: Abdomen soft nontender nondistended incision is clean dry and intact. Dressing was removed in the office. General Limitations: no limitations General Appearance: alert, in no apparent distress, comfortable, cooperative, healthy appearing and well groomed Office Procedures OB Clinic LOC & Office Proc's Nursing/Assessment Patient Status: Established Patient OB Clinic Nursing Assessment: Medication Reconciliation, Update PMH in EMR and Vital Signs OB Clinic Coordination of Care: Complex Care and Chronic Disease 1-5, Consent,records obtained, informed consent, Education Simp Pt/Fam and Staff clarify orders Established Patient Charge Established Patient Point Assignment: 85 Post Follow-up Visit Post Follow up Visit: Yes Assessment & Plan Diagnosis / Problem List (1) Term delivered: Status: Acute Assessment and Plan: Patient was instructed no heavy lifting intercourse tampons or douching for 4 more weeks. She will follow-up then. We will address control at that time. No signs of depression heavy bleeding or wound complications at this time. Care Reviewed delivery summary and any complications: Yes Uterus involuted to: 15 weeks size Perineal / incision healing noted: Yes Screened for depression: Yes Depression counseling provided: No Discussed family planning & contraception: No Counseling on safe resumption of sexual activity: No Counseling on gradual excercise: Yes Discussed and concerns (describe), provided support: Yes Referred to database management system specialist: No Counseled on good nutrition, hydration, and self care: Yes Reviewed vaccine status: No Additional follow up plans: Follow-up in 4 weeks care discussed; questions answered: feeding and sleep
== END 2024-09-26 11:20 | disposition home or self-care (01) ==
LOC: HODSOBC 11:06
PROVIDERS: Supervising Provider Obstetrics & Gynecology; Visit Provider Obstetrics & Gynecology
DX: Z39.2 Encounter for routine postpartum follow-up (principal); Z39.1 Encounter for care and examination of lactating mother

== ENCOUNTER 2024-10-27 10:25 | Outpatient (AMB) | payer BC, SELFPAY ==
[2024-10-27 10:31] VITALS: BP 113/74; PULSE 72; RESP 17; TEMP 36.4; O2SAT 98; BMI 33.2
--- NOTE | 2024-10-27 10:31 | AMBOBPPN_ITS ---
Vital Signs 10/27/24 10:31 Height 1.68 m Height Method Measured Weight 93.667 kg Weight Measurement Method Standing Scale BMI 33.2 BP 113/74 Blood Pressure Source Automatic Cuff Blood Pressure Location Right Upper Arm Position Sitting Respiration 17 Pulse 72 Pulse Source Monitor Temp 97.5 F Temp Source Temporal Artery Scan Pulse Oximetry (%) 98 Oxygen Delivery Method Room Air Allergies/Home Meds Allergies & Medications Allergies amoxicillin Allergy (Severe, Verified 10/27/24 10:32) Hives pineapple Allergy (Verified 10/27/24 10:32) Medication Reconciliation vitamins no.121-iron 28 mg-folic acid 800 mcg tablet 1 tab PO QDAY 06/06/24 [History Confirmed 10/27/24] hydrocodone 5 mg-acetaminophen 325 mg tablet 1 tab PO Q6H PRN pain #20 tabs 09/12/24 [Rx Confirmed 10/27/24] ibuprofen 600 mg tablet 600 mg PO Q6H PRN pain #30 tabs 09/12/24 [Rx Confirmed 10/27/24] docusate sodium 250 mg capsule 250 mg PO BID PRN constipation #60 caps 09/13/24 [Rx Confirmed 10/27/24] hydrochlorothiazide 25 mg tablet 25 mg PO QDAY PRN swelling in legs #10 tabs 09/13/24 [Rx Confirmed 10/27/24] Intake Visit Data Collection New Patient or Established: Established Patient (seen at [facility] within 3 years) Reason for Visit:: FOLLOW UP Consent obtained for Telemed Visit: No Seen by Clinical Staff ONLY (RN/MA): No Nurse Ldr Required: No Do You Feel Safe at Home: Yes Authorities Contacted: N/A PCP or OBGYN visit in last 3 months: Yes Date of Last PCP or OBGYN visit: 09/26/24 Hx Now: No Are you currently on any form of Control: No Pain Present Currently: No Pain Scale Used: Angelo-Taylor/Numerical Pain scale:: 0 Smoking Status Smoking Status: Never smoker MANAGER SCIENCE: Past Medical History Past Medical History: No Hx Neurological Disorders, No Hx Hypothyroidism, No Hx Hyperthyroidism, No Hx Breast Cancer, No Hx Cardiac Disorders, No Hx Hypertension, No Hx Cancer, No Hx Anemia, Yes Hx Gastrointestinal Disorders, No Hx Renal Disease, No Hx Deep Vein Thrombosis, No Hx Diabetes Mellitus Type 1, No Hx Diabetes Mellitus Type 2, No Psychiatric Problems and No Hx Polycystic Ovarian Syndrome Questionnaires Covid-19 Vaccine Questionnaire Has patient been vacinated for Covid-19 Have you been vacinated for Covid-19: Yes Social History Living Situation History Lives With: Spouse Housing: House Housing Other:: Moved from [facility] [place], works in [employer]. Spouse is a yo Tobacco History Smoking Status: Never smoker Second Hand Smoke Exposure: No Alcohol History Alcohol Intake: Current Substance Use History Substance Use: NONE Domestic Abuse History Do You Feel Safe at Home: Yes EPDS - PP Depression Screening [place] Pospartum Depression Screen I have been able to laugh and see the funny side of things: (0) As much as I always could I have looked forward with enjoyment to things: (0) As much as I ever did I have blamed myself unnecessarily when things went wrong: (0) No, never I have been anxious or worried for no good reason: (0) No, not at all I have felt scared or panicky for no very good reason: (0) No, not at all Things have been getting on top of me: (0) No, I have been coping as well as ever I have been so unhappy that I have had difficulty sleeping: (0) No, not at all I have felt sad or miserable: (0) No, not at all I have been so unhappy that I have been crying: (0) No, never The thought of harming myself has occurred to me: (0) Never Care OB Visit Log OB Flowsheet Initial Weight: Not Recorded Date -?-?-?-?-?-?-?-?-?-?-?-?- EGA Weight BP Alb Glu CTX Pres Fundal ht FHR Mov Dilation Station Effacement Hx Notes Visit Note 06/06/24 -?-?-?-?-?-?-?-?-?-?-?-?- 25w 1d 87.317 kg 112/71 24 140 active 07/18/24 -?-?-?-?-?-?-?-?-?-?-?-?- 31w 1d 91.852 kg 114/75 32 140 active GCT 116. Hgb 12. Constipated and Bright red blood from rectum. Hx hemerrhoids, Stool softeners. Had EGD/Colon screen in past for IBS. 08/08/24 -?-?-?-?-?-?-?-?-?-?-?-?- 34w 1d 95.254 kg 101/71 36 157 active order US 2 weeks check position S>D 08/26/24 -?-?-?-?-?-?-?-?-?-?-?-?- 36w 5d 99.96 kg 111/74 occasional breech 37 14 3 active 1 -3 0 Bedside ultrasound evin breech Positive movement no contractions no loss of fl uid. Knows baby is breech. Strep screen done today. 09/01/24 -?-?-?-?-?-?-?-?-?-?-?-?- 37w 4d 100.924 kg 122/79 occasional breech 38 145 active [place] breech +FM No UCs or LOF. If CS desires at 39 weeks on 09/11/24 BOBBY Calculator Estimated Delivery Date Method Current WG Current Estimate 09/18/24 Ultrasound #1 45w 4d Other Estimates 09/18/24 LMP (Certain) 45w 4d Expected Delivery Route/Plan Anticipate . Pt mother had a CS Specific Issue/Plans Transfer of care from [facility] [place] Labs and records scanned in (23 pages) Notes Visit Date: 09/01/24 Last Updated by: Alesia Nathan (OB Clinic)MD Have PNR but do not see PNC records. Visit Date: 08/08/24 Last Updated by: Alesia Nathan (OB Clinic)MD [facility] Visit Date: 06/06/24 Last Updated by: Alesia Nathan (OB Clinic)MD Pt transferred care from [facility]. All PNC reviewed. Normal labs and second trimester US reviewed. NIPT tests reported by pt as WNL but no report seen. Knows it is a boy. Has GCT scheduled and will schedule a GB US for RUQ pain and an axillary US for lumps. Reassured pt and spouse this is likely just redundant breast tissue in axillary tail but since other MD was concerned, will order US. HPI Interval History: The patient is a 29-year-old -0-0-1 status post primary scheduled 09/11/2024 at 39 weeks for persistent breech presentation. Her EDC was 09/08/2024. Patient is present with her son, Florentin, and her today. She had a Pap smear during which was normal. Was or delivery considered high risk: No Delivery type: Was labor induced: no Gestational age at delivery (weeks): 39 Delivery date: 09/11/24 Delivering provider: DR. Debbie Nathan Delivery complications: No Is patient : Yes Is patient sexually active: No Contraception planned: Micronor minipill Review of Systems Review of Systems ROS limited to current MANAGER SCIENCE complaints: Yes Narrative Review of Systems: Patient denies fevers chills heavy vaginal bleeding, breast-feeding concerns, any signs of depression or mastitis. She denies dysuria. Her pain has resolved. She is anxious to exercise. Exam Narrative Physical exam: Incision is well-healed. Pfannenstiel. Fundus is not palpable. Pelvic exam deferred. Breast exam deferred. General Limitations: no limitations General Appearance: alert, in no apparent distress, comfortable, cooperative, healthy appearing and well groomed Neck Neck exam: Present normal inspection, full ROM and trachea midline Chest Chest inspection: Present normal inspection and symmetric chest wall rise Resp Respiratory exam: Present normal lung sounds bilaterally Card Cardiovascular exam: Present regular rate, normal rhythm and normal heart sounds Abdominal Abdominal exam: Present soft and normal bowel sounds Extremities Extremities exam: Present normal inspection and full ROM Psych Psychiatric exam: Present normal affect and normal mood Skin Skin exam: Present warm, dry, intact and normal color Office Procedures OB Clinic LOC & Office Proc's Nursing/Assessment Patient Status: Established Patient OB Clinic Nursing Assessment: Medication Reconciliation, Update PMH in EMR and Vital Signs OB Clinic Coordination of Care: Complex Care and Chronic Disease 1-5, Consent,records obtained, informed consent, Education Simp Pt/Fam and 4+ Authorizations needed Established Patient Charge Established Patient Point Assignment: 100 Post Follow-up Visit Post Follow up Visit: Yes Assessment & Plan Diagnosis / Problem List (1) care following delivery: Status: Acute Plan Patient is healed well after primary . Patient can go back to all normal activity activities including intercourse. She will need condoms the first month. She will use the Micronor for contraception. After that she is planning on using the rhythm method for contraception with timing. I explained this is hard to do when she just had a baby and she could ovulate with breast- feeding. Patient agrees to use the Micronor at this time. She will follow-up in 1 year for an annual exam Care Reviewed delivery summary and any complications: Yes Perineal / incision healing noted: Yes Screened for depression: Yes Depression counseling provided: No Discussed family planning & contraception: Yes Contraception planned: Micronor minipill Counseling on safe resumption of sexual activity: Yes Counseling on gradual excercise: Yes Discussed and concerns (describe), provided support: Yes Referred to environmental compliance specialist: No Counseled on good nutrition, hydration, and self care: Yes Reviewed vaccine status: No Chronic & current problems reconciled on problem list: Yes Additional follow up plans: Follow-up in 1 year for annual exam care discussed; questions answered: feeding and sleep
== END 2024-10-27 11:05 | disposition home or self-care (01) ==
LOC: HODSOBC 10:25
PROVIDERS: Supervising Provider Obstetrics & Gynecology; Visit Provider Obstetrics & Gynecology
DX: Z39.2 Encounter for routine postpartum follow-up (principal); Z39.1 Encounter for care and examination of lactating mother; Z88.0 Allergy status to penicillin; Z91.018 Allergy to other foods
CPT/HCPCS: Z1038

== ENCOUNTER 2024-12-31 14:36 | Outpatient (AMB) | payer BC, SELFPAY ==
[2024-12-31 14:56] VITALS: BP 130/76; PULSE 111; RESP 16; TEMP 36.2; O2SAT 97; BMI 32.8
--- NOTE | 2024-12-31 14:57 | AMBOBPPN_ITS ---
Vital Signs 12/31/24 14:56 12/31/24 15:00 Height 1.68 m Height Method Stated Weight 92.59 kg Weight Measurement Method Standing Scale BMI 32.8 BP 130/76 130/76 Blood Pressure Source Automatic Cuff Blood Pressure Location Left Upper Arm Position Sitting Respiration 16 16 Pulse 111 H 111 H Pulse Source Monitor Temp 97.2 F 97.2 F Temp Source Oral Pulse Oximetry (%) 97 97 Oxygen Delivery Method Room Air Allergies/Home Meds Allergies & Medications Allergies amoxicillin Allergy (Severe, Verified 12/31/24 14:58) Hives pineapple Allergy (Verified 12/31/24 14:58) Medication Reconciliation vitamins no.121-iron 28 mg-folic acid 800 mcg tablet 1 tab PO QDAY 06/06/24 [History Confirmed 12/31/24] hydrocodone 5 mg-acetaminophen 325 mg tablet 1 tab PO Q6H PRN pain #20 tabs 09/12/24 [Rx Confirmed 12/31/24] ibuprofen 600 mg tablet 600 mg PO Q6H PRN pain #30 tabs 09/12/24 [Rx Confirmed 12/31/24] docusate sodium 250 mg capsule 250 mg PO BID PRN constipation #60 caps 09/13/24 [Rx Confirmed 12/31/24] hydrochlorothiazide 25 mg tablet 25 mg PO QDAY PRN swelling in legs #10 tabs 09/13/24 [Rx Confirmed 12/31/24] Intake Visit Data Collection New Patient or Established: Established Patient (seen at [facility] within 3 years) Reason for Visit:: PP Seen by Clinical Staff ONLY (RN/MA): No Billet Checker Required: No Do You Feel Safe at Home: Yes Authorities Contacted: N/A PCP or OBGYN visit in last 3 months: Yes Date of Last PCP or OBGYN visit: 10/27/24 Hx Now: No Are you currently on any form of Control: No Pain Present Currently: No Pain Scale Used: Angelo-Taylor/Numerical Pain scale:: 0 Smoking Status Smoking Status: Never smoker MINING TECHNICIAN: Past Medical History Past Medical History: No Hx Neurological Disorders, No Hx Hypothyroidism, No Hx Hyperthyroidism, No Hx Breast Cancer, No Hx Cardiac Disorders, No Hx Hypertension, No Hx Cancer, No Hx Anemia, Yes Hx Gastrointestinal Disorders, No Hx Renal Disease, No Hx Deep Vein Thrombosis, No Hx Diabetes Mellitus Type 1, No Hx Diabetes Mellitus Type 2, No Psychiatric Problems and No Hx Polycystic Ovarian Syndrome Questionnaires Covid-19 Vaccine Questionnaire Has patient been vacinated for Covid-19 Have you been vacinated for Covid-19: Yes Social History Living Situation History Marital Status: Lives With: Spouse Housing: House Housing Other:: Moved from [facility] [place], works in [employer]. Spouse is a yo Tobacco History Smoking Status: Never smoker Second Hand Smoke Exposure: No Alcohol History Alcohol Intake: Current Substance Use History Substance Use: NONE Domestic Abuse History Do You Feel Safe at Home: Yes EPDS - PP Depression Screening [place] Pospartum Depression Screen I have been able to laugh and see the funny side of things: (0) As much as I always could I have looked forward with enjoyment to things: (0) As much as I ever did I have blamed myself unnecessarily when things went wrong: (0) No, never I have been anxious or worried for no good reason: (0) No, not at all I have felt scared or panicky for no very good reason: (0) No, not at all Things have been getting on top of me: (0) No, I have been coping as well as ever I have been so unhappy that I have had difficulty sleeping: (0) No, not at all I have felt sad or miserable: (0) No, not at all I have been so unhappy that I have been crying: (0) No, never The thought of harming myself has occurred to me: (0) Never Total Score: EPDS Score: Referral is indicated for score of 9 or more, suicidal, or if provider believes patient is depressed regardless of score.: 0 EPDS completed yes HPI Interval History: The patient is a 29-year-old -0-0-1 status post primary 09/11/[address] Debbie Nathan for breech. Patient did well and left the hospital postop day #2. Her baby is almost 10 weeks old. She is reporting 1 area of her incision that is slow to heal. She states that keeps opening about a half a centimeter and drained some bloody fluid. No fevers chills no erythema no induration. She is breast-feeding. Her son Florentin is with her today. Was or delivery considered high risk: No Delivery type: Was labor induced: no Gestational age at delivery (weeks): 39 Delivery date: 09/15/24 Delivering provider: Dr. Debbie Nathan Delivery complications: No Is patient infant: Yes Is patient sexually active: Yes Contraception planned: Condoms Exam Narrative Physical exam: Abdomen soft nontender her incision has half a centimeter opening which is draining some clearish red fluid. The remainder of her incision is clean dry intact. Her fundus cannot be palpated through the abdomen. No rebound guarding tenderness erythema or induration. General Limitations: no limitations General Appearance: alert, in no apparent distress, comfortable, cooperative, healthy appearing, well developed and well groomed Office Procedures OBC Clinic LOC & Office Proc's Nursing/Assessment Patient Status: Established Patient OB Clinic Nursing Assessment: Medication Reconciliation, Update PMH in EMR and Vital Signs OB Clinic Coordination of Care: Education Complex Pt/Fam, Consent,records obtained, informed consent, Lab and Imaging orders and Staff clarify orders Special Needs: Heart tones Established Patient Charge Established Patient Point Assignment: 110 Established Patient Point Charge: EP Level 3 (80-115) Assessment & Plan Diagnosis / Problem List (1) care following delivery: Status: Acute Plan: Patient was reassured that her incision should heal up completely. If it is on healed over the next month she can call we will bring her back in and numb up that area remove the little defect and put it back together with a stitch or two. Patient agrees with this plan she will call if is not healed in a month and I will come see her in clinic. She otherwise has no complaints specifically no depression or heavy bleeding. She is going back to work. She is exclusively breast-feeding. Care Reviewed delivery summary and any complications: Yes Uterus involuted to: less than 6 week size Perineal / incision healing noted: Yes Screened for depression: Yes Depression counseling provided: No Discussed family planning & contraception: No Contraception planned: Condoms Counseling on safe resumption of sexual activity: Yes Counseling on gradual excercise: Yes Discussed and concerns (describe), provided support: Yes Referred to day habilitation specialist: No Counseled on good nutrition, hydration, and self care: Yes Reviewed vaccine status: No Chronic & current problems reconciled on problem list: No Additional follow up plans: Follow-up 4 weeks if her incision is still draining Infant care discussed; questions answered: feeding and sleep Follow up: routine/prn
[2024-12-31 15:00] VITALS: BP 130/76; PULSE 111; RESP 16; TEMP 36.2; O2SAT 97
== END 2024-12-31 15:21 | disposition home or self-care (01) ==
LOC: HODSOBC 14:36
PROVIDERS: Supervising Provider Obstetrics & Gynecology; Visit Provider Obstetrics & Gynecology
DX: Z39.2 Encounter for routine postpartum follow-up (principal); Z39.1 Encounter for care and examination of lactating mother; Z88.0 Allergy status to penicillin; Z91.018 Allergy to other foods
CPT/HCPCS: 99213; G0463